=== PATIENT | female | born 1975 | race Caucasian/White ===

== ENCOUNTER 2016-08-13 07:07 | Day surgery (SDC) | payer MEDICARE, MEDICAID ==
[~2016-08-13] VITALS: Ht 167.6 cm
[~2016-08-13 07:07] MED LIST: CLARITIN DPS10 MG PO; FLEXERIL-DPS10 MG PO; HUMALOG100 UNIT/1 SQ; HYDROCODONE 5MG/5 MG PO; LANTUS100 UNITS/ SQ; LASIX DPS20 MG PO; MOBIC DPS7.5 MG PO; NORVASC DPS10 MG PO; POTASSIUM CHLO20 ME2 PO; PROTONIX40 MG PO; SURFAK DPS240 MG PO; SYNTHROID125 MCG PO; TOPROL XL DPS100 MG PO; WELLBUTRIN XL150 MG PO; ZANTAC DPS150 MG PO; ZOCOR DPS40 MG PO
--- NOTE | 2016-08-14 08:18 | OR ---
ADMIT: 08/13/2016 RM/LOC: [facility] MR#: [id number] [address] [address] SANDRA BARTLETT [address] [address] Operative/Delivery Room Report SEX: F AGE: 40 : 1975 SURGERY DATE: 08/13/2016 SURGEON: Brian Burns MD RACE BOARD ATTENDANT: None. PREPROCEDURE DIAGNOSES: 1. Lumbar spondylosis. 2. Lumbago. POSTPROCEDURE DIAGNOSES: 1. Lumbar spondylosis. 2. Lumbago. PROCEDURE PERFORMED: Left L3, L4, L5, and S1 radiofrequency thermocoagulation. INDICATIONS FOR PROCEDURE: The patient is a pleasant female with a history of chronic low back pain secondary to above-mentioned diagnoses, comes here for planned left lumbar radiofrequency ablation. ANESTHESIA: Local without sedation. ESTIMATED BLOOD LOSS: Zero. COMPLICATIONS: None immediately evident. DESCRIPTION OF THE PROCEDURE: After the patient was seen in the preoperative area, vitals signs were taken. Prior to the procedure, the risks, benefits, and alternative therapies were discussed at length. Patient consent was obtained and updated. The patient was taken to the fluoroscopy suite and placed on the fluoroscopy table in the prone position. Pressure points were padded to comfort, monitors applied, and a timeout performed. ADMIT: 08/13/2016 RM/LOC: [facility] MR#: [id number] [address] SANDRA BARTLETT [address] [address] Operative/Delivery Room Report SEX: F AGE: 40 : 1975 Fluoroscopy was brought in to identify the transverse process of the left L3, L4, L5, and S1. To anesthetize the skin, a spinal cannula was placed near the junction of pedicle and transverse process. Once we obtained appropriate parameters for sensory motor testing, we proceeded with radiofrequency thermocoagulation at each level, which consisted of 80 degrees for 90 seconds. The patient tolerated the procedure well. The patient did not feel any stimulation below her knees. The patient was discharged to post anesthesia care without any immediate complications. PLAN: Discharge instructions were given, followup scheduled. 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 Brian Burns MD/ joe JOB #: [id number] CC: Brian Burns, Attending Physician Geronimo Munoz, Family Physician
== END 2016-08-13 09:15 | disposition home or self-care (01) ==
LOC: SSS 07:07
PROC: 3E0T3TZ Introduction of Destructive Agent into Peripheral Nerves and Plexi, Percutaneous Approach (ICD-10-PCS; principal; 2016-08-13)
PROC: BR16YZZ Fluoroscopy of Lumbar Facet Joint(s) using Other Contrast (ICD-10-PCS; principal; 2016-08-13)
DX: G89.29 Other chronic pain (principal); M47.816 Spondylosis without myelopathy or radiculopathy, lumbar region; Z79.899 Other long term (current) drug therapy; Z79.891 Long term (current) use of opiate analgesic; Z88.8 Allergy status to other drugs, medicaments and biological substances

== ENCOUNTER 2016-09-10 07:13 | Day surgery (SDC) | payer MEDICARE, MEDICAID ==
[~2016-09-10] VITALS: Ht 167.6 cm; Wt 172.3 kg
--- NOTE | 2016-09-11 08:09 | OR ---
ADMIT: 09/10/2016 RM/LOC: [facility] MR#: [id number] [address] [address] SANDRA BARTLETT [address] [address] Operative/Delivery Room Report SEX: F AGE: 41 : 1975 SURGERY DATE: 09/10/2016 SURGEON: Brian Burns MD VEHICLE ASSEMBLER: None. PREPROCEDURE DIAGNOSES: 1. Lumbar spondylosis. 2. Lumbago. POSTPROCEDURE DIAGNOSES: 1. Lumbar spondylosis. 2. Lumbago. PROCEDURE PERFORMED: Right L3, L4, L5, and S1 medial branch radiofrequency thermocoagulation. INDICATIONS FOR PROCEDURE: The patient is a pleasant female with history of chronic low back pain secondary to above-mentioned diagnoses, comes here for planned right lumbar radiofrequency ablation. ANESTHESIA: Local without sedation. ESTIMATED BLOOD LOSS: Zero. COMPLICATIONS: None immediately evident. DESCRIPTION OF THE PROCEDURE: After the patient was seen in the preoperative area, vitals signs were taken. Prior to the procedure, the risks, benefits, and alternative therapies were discussed at length. Patient consent was obtained and updated. The patient was taken to the fluoroscopy suite and placed on the fluoroscopy table in the prone position. Pressure points were padded to comfort, monitors applied, and a timeout performed. ADMIT: 09/10/2016 RM/LOC: [facility] MR#: [id number] [address] [address] SANDRA BARTLETT [address] [address] Operative/Delivery Room Report SEX: F AGE: 41 : 1975 Fluoroscopy was brought in to identify the transverse process of the right- sided L3, L4, L5, and S1. To anesthetize the skin, a spinal cannula was placed near the junction of pedicle and transverse process. Once we obtained appropriate parameters for sensory motor testing, we proceeded with radiofrequency thermocoagulation at each level, which consisted of 80 degrees for 90 seconds. The patient tolerated the procedure well. The patient did not feel any stimulation below her knees. The patient was discharged to post anesthesia care without any immediate complications. PLAN: Discharge instructions were given, followup scheduled. The patient was discharged home with a refuse driver. Brian Burns MD/ joe JOB #: [id number] CC: Brian Burns, Attending Physician Geronimo Munoz, Family Physician
== END 2016-09-10 09:30 | disposition home or self-care (01) ==
LOC: SSS 07:13
PROC: BR16YZZ Fluoroscopy of Lumbar Facet Joint(s) using Other Contrast (ICD-10-PCS; principal; 2016-09-10)
PROC: 3E0T3TZ Introduction of Destructive Agent into Peripheral Nerves and Plexi, Percutaneous Approach (ICD-10-PCS; principal; 2016-09-10)
DX: G89.29 Other chronic pain (principal); M47.816 Spondylosis without myelopathy or radiculopathy, lumbar region; Z79.899 Other long term (current) drug therapy; Z79.891 Long term (current) use of opiate analgesic; Z88.8 Allergy status to other drugs, medicaments and biological substances

== ENCOUNTER 2016-11-13 08:00 | Emergency (ER) | payer MEDICARE, MEDICAID ==
--- NOTE | 2016-11-18 07:15 | ER ---
ADMIT: 11/13/2016 RM/LOC: ER [facility] MR#: [id number] [address] [address] SANDRA BARTLETT [address] [facility] [address] [place] [address] Emergency Room Report SEX: F AGE: 41 : 1975 DATE: 11/13/2016 ADDENDUM: See T-sheet for complete H and P. A 41-year-old female, comes in with back pain. She has a long history of chronic back pain, but it has been worse over the past several days. She also states that she has occasionally been having some urinary incontinence. She states she has some paresthesias in the right leg, but no weakness in either leg. She denies any sensory deficit into her perineum or groin. I did consider get an MRI on the patient, but I am unable to due to the fact that she has a pacemaker. I ran the case by Dr. Jolly, who is on for Neurosurgery and recommended a CT myelogram of her lumbar spine. We did get a myelogram done and apparently shows no acute findings and actually looks pretty well and is compared to a previous study. Her pain is better controlled in the ER, and we will plan on discharging her home to continue her pain medications and to increase her dose of Lasix for the next 3 days. She is to follow up with Dr. Munoz as scheduled and I did discuss the case with Dr. Munoz. DIAGNOSIS: 1. Acute on chronic back pain. 2. Pedal edema. Antonio Gonzalez MD/ joe JOB #: [id number] CC: Antonio Gonzalez MD, Attending Physician UNKNOWN, Family Physician
== END 2016-11-13 15:00 | disposition home or self-care (01) ==
LOC: ER 08:00
DX: G89.29 Other chronic pain (principal); M54.5 Low back pain; R60.0 Localized edema; I10 Essential (primary) hypertension; E11.9 Type 2 diabetes mellitus without complications; Z90.49 Acquired absence of other specified parts of digestive tract; Z88.8 Allergy status to other drugs, medicaments and biological substances; Z87.891 Personal history of nicotine dependence